=== PATIENT | female | born 1980 | race American Indian/Alaskan Native ===

== ENCOUNTER 2019-12-23 08:25 | Emergency (ER) | payer MEDICAID ==
[2019-12-23] MEDS ORDERED: SODIUM CHLORIDE 0.9% 1000 ML 1,000 ML IV ONE ×2 (08:36→10:20)
[2019-12-23] MEDS ORDERED: IBUPROFEN 800 MG TAB PO ONE (08:37)
[2019-12-23] MEDS ORDERED: ONDANSETRON 4 MG/2 ML INJ IV ONE (08:37)
--- NOTE | 2019-12-23 08:43 | Emergency Department Report ---
ED Syncope HPI - General Stated Complaint: SYNCOPAL EPISODES Time Seen by Provider: 12/23/19 08:36 Source: patient Exam Limitations: no limitations - History of Present Illness Initial Comments: Chief complaint: "I just feel bad." This is a 39-year-old female with a history of hypertension and non-insulin diabetes who presents with lightheadedness and syncopal episodes. This morning patient awakened feeling ill. She felt hot. She felt lightheaded. She briefly passed out. Syncope was witnessed by family member. After moment of rest she felt a little bit better. She then went to the bathroom. She had diarrhea. After defecation, she fell to the ground and experienced another brief syncopal episode. Last night she was in her normal state of health. She ate [employer]. She went to bed without any symptoms. Patient underwent laser liposuction procedure outside clinic 3 days ago. She denies chest pain, palpitations, shortness of breath, abdominal pain. She denies history of anemia. Patient does not use oral contraceptives. Patient takes metformin for diabetes mellitus. She takes twice a day antihypertensive medication. She cannot recall the name. She receives primary medical care at [facility]. She works in a warehouse setting. Surgical history: Tubal ligation, section Timing/Prior Episodes: multiple episodes today Precipitating Factors: Positive: lightheadedness Context: standing, other (Defecation) Loss of Consciousness: brief (seconds) Current Symptoms: lightheadedness, other (Malaise) - Related Data Home Medications: Ambulatory Orders Ciprofloxacin HCl [Ciprofloxacin TAB] 500 mg PO Q12HR 3 Days #6 tab 12/23/19 ED Review of Systems ROS: Stated complaint: SYNCOPAL EPISODES Other details as noted in HPI Comment: All other systems reviewed and negative Constitutional: fever, malaise, other (Subjective fever) Respiratory: denies: cough, shortness of breath Cardiovascular: denies: chest pain Gastrointestinal: denies: abdominal pain Neurological: denies: headache ED Past Medical Hx - Past Medical History Previous Medical History?: Yes Hx Hypertension: Yes Hx Diabetes: Yes - Surgical History Additional Surgical History: Tubal ligation, section - Social History Smoking Status: Never Smoker Substance Use Type: None - Medications Home Medications: Home Medications Medication Instructions Recorded Confirmed Last Taken Type Ciprofloxacin HCl [Ciprofloxacin 500 mg PO Q12HR 3 Days #6 tab 12/23/19 Unknown Rx TAB] ED Physical Exam - General Limitations: No Limitations General appearance: alert, in no apparent distress - Head Head exam: Present: atraumatic, normocephalic - Eye Eye exam: Present: normal appearance. Absent: scleral icterus, conjunctival injection - ENT ENT exam: Present: mucous membranes moist - Neck Neck exam: Present: normal inspection, full ROM - Respiratory Respiratory exam: Present: normal lung sounds bilaterally. Absent: respiratory distress, wheezes, rales, rhonchi, stridor - Cardiovascular Cardiovascular Exam: Present: regular rate, normal rhythm, normal heart sounds. Absent: systolic murmur, diastolic murmur, rubs, gallop - GI/Abdominal GI/Abdominal exam: Present: soft, normal bowel sounds. Absent: distended, tenderness, guarding, rebound - Extremities Exam Extremities exam: Present: normal inspection - Neurological Exam Neurological exam: Present: alert, oriented X3 - Psychiatric Psychiatric exam: Present: normal affect, normal mood - Skin Skin exam: Present: warm, dry, intact, normal color. Absent: rash ED Course Vital Signs 12/23/19 12/23/19 12/23/19 08:37 08:41 08:58 Temperature 98.2 F Pulse Rate 75 Respiratory 18 18 18 Rate Blood Pressure 110/55 Blood Pressure 110/55 [Right] O2 Sat by Pulse 100 100 Oximetry ED Medical Decision Making - Lab Data Result diagrams: 12/23/19 08:59 12/23/19 08:59 Laboratory Results - last 24 hr 12/23/19 12/23/19 12/23/19 08:59 08:59 10:49 WBC 20.7 H RBC 4.25 Hgb 10.4 Hct 33.1 MCV 78 L MCH 25 L MCHC 32 RDW 15.3 H Plt Count 527 H Add Manual Diff Complete Total Counted 100 Seg Neuts % (Manual) 90.0 H Band Neutrophils % 5.0 Lymphocytes % (Manual) 2.0 L Reactive Lymphs % (Man) 0 Monocytes % (Manual) 3.0 Eosinophils % (Manual) 0 Basophils % (Manual) 0 Metamyelocytes % 0 Myelocytes % 0 Promyelocytes % 0 Blast Cells % 0 Nucleated RBC % Not Reportable Seg Neutrophils # Man 18.6 H Band Neutrophils # 1.0 Lymphocytes # (Manual) 0.4 L Abs React Lymphs (Man) 0.0 Monocytes # (Manual) 0.6 Eosinophils # (Manual) 0.0 Basophils # (Manual) 0.0 Metamyelocytes # 0.0 Myelocytes # 0.0 Promyelocytes # 0.0 Blast Cells # 0.0 WBC Morphology Not Reportable Hypersegmented Neuts Not Reportable Hyposegmented Neuts Not Reportable Hypogranular Neuts Not Reportable Smudge Cells Not Reportable Toxic Granulation Not Reportable Toxic Vacuolation Not Reportable Dohle Bodies Not Reportable Pelger-Huet Anomaly Not Reportable Lisa Rods Not Reportable Platelet Estimate Consistent w auto Clumped Platelets Rare Plt Clumps, EDTA Not Reportable Large Platelets Not Reportable Giant Platelets Not Reportable Platelet Satelliting Not Reportable Plt Morphology Comment Not Reportable RBC Morphology Not Reportable Dimorphic RBCs Not Reportable Polychromasia Not Reportable Hypochromasia Few Poikilocytosis Not Reportable Anisocytosis Few Microcytosis Few Macrocytosis Not Reportable Spherocytes Not Reportable Pappenheimer Bodies Not Reportable Sickle Cells Not Reportable Target Cells Not Reportable Tear Drop Cells Not Reportable Ovalocytes Not Reportable Helmet Cells Not Reportable Lockhart-Winfred Bodies Not Reportable Wickes Rings Not Reportable Lu Cells Not Reportable Bite Cells Not Reportable Crenated Cell Not Reportable Elliptocytes Not Reportable Acanthocytes (Spur) Not Reportable Rouleaux Not Reportable Hemoglobin C Crystals Not Reportable Schistocytes Not Reportable Malaria parasites Not Reportable Mayank Bodies Not Reportable Hem Pathologist Commnt No Sodium 140 Potassium 4.3 Chloride 104.3 Carbon Dioxide 28 Anion Gap 12 BUN 13 Creatinine 0.9 Estimated GFR > 60 BUN/Creatinine Ratio 14 Glucose 114 H Lactic Acid 0.70 Calcium 9.3 - EKG Data -: EKG Interpreted by Vt EKG shows normal: sinus rhythm, axis, intervals, QRS complexes Rate: normal - EKG Data 12/23/19 09:19 EKG obtained 0 911 EKG interpreted by mt Normal sinus rhythm rate 75 bpm normal axis normal intervals inverted T waves in the lateral leads I and aVL - Radiology Data Radiology results: report reviewed CT abdomen pelvis revealed trace perihepatic free fluid minimal free fluid in the right paracolic gutter, ventral hernia with minimal inflammatory fat stranding no acute abnormalities additionally Chest radiograph: Mild cardiomegaly lungs are clear - Medical Decision Making Clinical impression: Vasovagal syncope. Patient had preceding malaise lightheadedness prior to first episode. Patient was defecating previous to the second episode. PERC negative for PE. No indication of arrhythmia. Due to leukocytosis, I initiated sepsis work-up. Lactic acid normal. Vital signs do not reflect Sirs. She does not have a focus for infection. CT abdomen pelvis ordered due to history of laser liposuction. Differential diagnosis includes: Food poisoning, viral syndrome such as COVID-19 infection, With history of diarrhea: Patient was prescribed ciprofloxacin. She understood return precautions. Vital Signs - 24 hr 12/23/19 12/23/19 12/23/19 08:33 08:37 08:41 Temperature 98.2 F Pulse Rate 75 Respiratory 18 18 Rate Blood Pressure 110/55 Blood Pressure 110/55 [Right] O2 Sat by Pulse 99 100 100 Oximetry 12/23/19 12/23/19 12/23/19 08:45 08:58 09:01 Temperature Pulse Rate 70 74 Respiratory 16 18 14 Rate Blood Pressure 110/55 110/55 Blood Pressure [Right] O2 Sat by Pulse 100 100 Oximetry 12/23/19 12/23/19 12/23/19 09:15 09:31 09:45 Temperature Pulse Rate 77 69 65 Respiratory 11 L 19 17 Rate Blood Pressure 110/55 110/55 110/55 Blood Pressure [Right] O2 Sat by Pulse 100 100 100 Oximetry 12/23/19 12/23/19 12/23/19 10:00 10:15 10:31 Temperature Pulse Rate 74 59 L 65 Respiratory 18 17 12 Rate Blood Pressure 129/67 129/67 129/67 Blood Pressure [Right] O2 Sat by Pulse 98 100 99 Oximetry 12/23/19 12/23/19 12/23/19 10:45 11:00 11:15 Temperature Pulse Rate 62 64 86 Respiratory 14 12 26 H Rate Blood Pressure 129/67 129/67 128/68 Blood Pressure [Right] O2 Sat by Pulse 99 100 100 Oximetry 12/23/19 12/23/19 12/23/19 11:31 11:45 12:11 Temperature Pulse Rate 68 64 Respiratory 12 23 Rate Blood Pressure 128/68 128/68 128/68 Blood Pressure [Right] O2 Sat by Pulse 95 100 100 Oximetry 12/23/19 12:15 Temperature Pulse Rate Respiratory Rate Blood Pressure 128/68 Blood Pressure [Right] O2 Sat by Pulse 100 Oximetry Critical care attestation.: If time is entered above; I have spent that time in minutes in the direct care of this critically ill patient, excluding procedure time. ED Disposition Clinical Impression: Vasovagal syncope, Diarrhea Disposition: DC-01 TO HOME OR SELFCARE Is pt being admited?: No Does the pt Need Aspirin: No Condition: Stable Instructions: Syncope (ED), Acute Diarrhea (ED) Prescriptions: Ciprofloxacin HCl [Ciprofloxacin TAB] 500 mg PO Q12HR 3 Days #6 tab Referrals: PRIMARY CARE, [Primary Care Provider] - 3-5 Days
[2019-12-23 09:21] LABS: Hematocrit 33.1 % (30.3-42.9); Hemoglobin 10.4 gm/dl (10.1-14.3); Mean Corpuscular HGB Conc 32 % (30-34); Mean Corpuscular Volume 78 fl (79-97); Platelet Count 527 K/mm3 (140-440); Red Blood Count 4.25 M/mm3 (3.65-5.03); Red Cell Distribution Width 15.3 % (13.2-15.2)
[2019-12-23 09:34] LABS: BUN/Creatinine Ratio 14; Blood Urea Nitrogen 13 mg/dL (7-17); Calcium 9.3 mg/dL (8.4-10.2); Hemolysis Index 11
[2019-12-23 10:27] LABS: Anisocytosis Few; Basophils % (Manual) 0 % (0.0-1.8); Eosinophils % (Manual) 0 % (0.0-4.3); Total Cells Counted 100
[2019-12-23 10:28] LABS: Hypochromasia Few; Platelet Clumps Rare; Platelet Estimate Consistent w Auto
--- NOTE | 2019-12-23 10:42 | XRay Report ---
CHEST 1 VIEW INDICATION / CLINICAL INFORMATION: dyspnea. FINDINGS: SUPPORT DEVICES: None. HEART / MEDIASTINUM: Mildly enlarged. LUNGS / PLEURA: No significant pulmonary or pleural abnormality. No pneumothorax. ADDITIONAL FINDINGS: No significant additional findings. IMPRESSION: Mild cardiomegaly. Lungs are clear. Signer Name: Cb Walker MD Signed: 12/23/2019 10:37 AM Workstation Name: [id number]
[2019-12-23 12:17] VITALS: BP 128/68
--- NOTE | 2019-12-23 12:22 | Cat Scan Report ---
CT ABDOMEN AND PELVIS WITHOUT CONTRAST INDICATION / CLINICAL INFORMATION: Leukocytosis, s/p liposuction. TECHNIQUE: Axial CT images were obtained through the abdomen and pelvis without IV contrast. All CT scans at [facility] location are performed using CT dose reduction for ALARA by means of automated exposure control. COMPARISON: None available. FINDINGS: LOWER CHEST: No significant abnormality. LIVER: No significant abnormality. GALLBLADDER: No significant abnormality. PANCREAS: No significant abnormality. SPLEEN: No significant abnormality. ADRENALS: No significant abnormality. KIDNEYS / URETERS: No significant abnormality. URINARY BLADDER: No significant abnormality. REPRODUCTIVE ORGANS: No significant abnormality. STOMACH / SMALL BOWEL: No significant abnormality. COLON: No significant abnormality. APPENDIX: No significant abnormality. PERITONEUM: There is trace perihepatic free fluid as well as trace fluid in the right paracolic gutte r. No free air. No fluid collection. LYMPH NODES: No significant adenopathy. AORTA / ARTERIES: No significant abnormality. IVC / VEINS: No significant abnormality. SKELETAL SYSTEM: No significant abnormality. ADDITIONAL FINDINGS: There is a complex supraumbilical ventral hernia containing fat. Minimal inflamm atory fat stranding is seen at the base of this hernia. IMPRESSION: 1. Trace perihepatic free fluid as well as minimal fluid in the right paracolic gutter. This is nonsp ecific. 2. Complex fat-containing supraumbilical ventral hernia with minimal inflammatory fat stranding adjac ent to this site. This may be postoperative. 3. No additional acute abnormalities. Signer Name: Francis Schroeder MD Signed: 12/23/2019 12:17 PM Workstation Name: [id number]
== END 2019-12-23 14:34 | disposition home or self-care (01) ==
LOC: ED 08:25
DX: R55 Syncope and collapse (principal); R19.7 Diarrhea, unspecified; I10 Essential (primary) hypertension; E11.9 Type 2 diabetes mellitus without complications; Z98.51 Tubal ligation status; Z98.890 Other specified postprocedural states
CPT/HCPCS: 36415; 71045; 74176; 80048; 82140; 85007; 85025; 87040; 93005; 96361; 96374; 99285; J2405; J7030